=== PATIENT | female | born 1955 ===

== ENCOUNTER 2025-01-29 08:37 | Outpatient (CLI) | payer MEDICARE, OTHER, SELFPAY ==
--- OUTSIDE RECORDS SUMMARY | 2025-01-29 08:42 | XMS_ITS | Continuity of Care Document ---
Author Name [facility] Organization [facility] Care Team Providers Care Computer Support Analyst Name Role Phone [facility] Unavailable Unavailable Problems Combined list of problems from Department of Defense and Veterans Affairs facilities. It does not include entries that were removed or entered in error. Problem Status Onset Date Problem Type Date of Resolution Comments Source SEBORRHEIC KERATOSIS Active Condition DoD A[place]CHORDON Active Condition DoD COLLOID MILIUM Active Condition NON C OLLOID MILIUM # 4 [facility] Diagnosis: ICD-10-CM H90.3 Sensorineural hearing loss, bilateral Active Diagnosis [facility] Medications Combined list of outpatient medications from Department of Defense and Veterans Affairs facilities.Medications provided include 1) outpatient medications from the last 15 months, and 2) patient-reported medications. Medication Details Route Status Patient Instructions Prescription Expires Prescription Number Last Dispense Date Ordering Provider Order Date Order Qty Source amLODIPine (U/D) 5 MG ORAL TAB Be careful if taking OTCs.Nathen e or use exactly as directed . 01/06/2025 [id number] 4 2023 90 [employer] Long [place] ([facility]) amLODIPine 10 mg tablet See Instruct ions, # 90 EA, 3 total refill(s ), Hard Stop Ordered 04/08/2025 5 2024 90.0 Ambulat ory Pharmac y amLODIPine 5 mg tablet 5 mg, Oral, Daily, # 90 EA, 3 total refill(s ), Hard Stop Oral (given by mouth) Discont inued 04/08/2024 4 2023 90.0 Ambulat ory Pharmac y AREXVY (respirator y syncytial virus vacc. antigen/AS0 1E adjuvant/PF ), 120MCG/0.5, KIT, INTRAMUSC, GLAXOSMITHK LINE, 1 ea. KIT Active [id number] 4 2023 1 Pharmac y Data Transac tion Service Facilit y ATENOLOL (ATENOLOL), 50 MG, TABLET, ORAL, [employer] 1000 ea. BOTTLE Active [id number] 4 2023 90 Pharmac y Data Transac tion Service Facilit y BUPROPION XL (bupropion HCl), 150 MG, TAB ER 24H, ORAL, LEANA RANCH [place], 500 ea. BOTTLE Active [id number] 4 2023 90 Pharmac y Data Transac tion Service Facilit y BUPROPION XL (bupropion HCl), 150 MG, TAB ER 24H, ORAL, [employer] 500 ea. BOTTLE Cancele d [id number] : 2023 0 Pharmac y Data Transac tion Service Facilit y BUPROPION XL (bupropion HCl), 150 MG, TAB ER 24H, ORAL, [employer] 500 ea. BOTTLE Active [id number] 4 2023 90 Pharmac y Data Transac tion Service Facilit y buPROPion XL 150 mg/24 hour tablet See Instruct spenser, # 90 EA, 3 total refill(s ), Hard Stop Discont inued 04/26/2023 3 2022 90.0 Ambulat ory Pharmac y celecoxib 200 mg capsule See Instruct spenser, # 30 EA, 0 total refill(s ), Hard Stop Complet ed 02/05/2024 3 2023 30.0 Ambulat ory Pharmac y EMPAGLIFLOZ IN 25 MG ORAL TAB Check with your doctor before becoming . 11/12/2024 [id number] 4 2023 90 [facility] ([facility]) empaglifloz in 25 mg tablet = 1 tab(s), Oral, Daily, # 90 EA, 3 total refill(s ), Hard Stop Oral (given by mouth) Ordered 10/20/2025 5 2024 90.0 Ambulat ory Pharmac y fexofenadin e 180 mg tablet See Instruct spenser, # 90 EA, 3 total refill(s ), Hard Stop Discont inued 06/20/2023 3 2022 90.0 Ambulat ory Pharmac y fluticasone 50 mcg/inh nasal spray [16g] See Instruct ions, # 16 g, 5 total refill(s ), Hard Stop Discont inued 09/12/2023 3 2023 16.0 Ambulat ory Pharmac y Jardiance 25 mg tablet 25 mg, Oral, Daily, # 90 EA, 3 total refill(s ), Hard Stop Oral (given by mouth) Discont inued 10/23/2024 4 2024 90.0 Ambulat ory Pharmac y LOSARTAN POTASSIUM (losartan potassium), 50 MG, TABLET, ORAL, XLCARE PHARMACE, 90 ea. BOTTLE Active [id number] 4 2023 180 Pharmac y Data Transac tion Service Facilit y NALTREXONE HCL (naltrexone HCl), 50 MG, TABLET, ORAL, [employer] LL, 30 ea. BOTTLE Cancele d [id number] : 2023 0 Pharmac y Data Transac tion Service Facilit y olopatadine 0.1% eye drops [5mL] See Instruct ions, # 5 mL, 6 total refill(s ), Hard Stop Complet ed 03/13/2024 4 2023 5.0 Ambulat ory Pharmac y pantoprazol e EC 20 mg tablet See dose instruct ions in comments , # 90 EA, 1 total refill(s ), Acute Complet ed 05/28/2023 3 2022 90.0 Ambulat ory Pharmac y pantoprazol e EC 20 mg tablet 20 mg, Oral, Daily, # 90 EA, 3 total refill(s ), Hard Stop Oral (given by mouth) Discont inued 05/14/2024 4 2023 90.0 Ambulat ory Pharmac y pantoprazol e EC 20 mg tablet = 1 tab(s), Oral, Daily, # 90 EA, 3 total refill(s ), Hard Stop Oral (given by mouth) Ordered 05/13/2025 5 2024 90.0 Ambulat ory Pharmac y Prednisone (Deltasone Dosepak) Tablet 10mg Oral Take with food/mil k.Take or use exactly as directed .Obtain advice for OTCs. 11/12/2024 [id number] 4 [address] [place] [address] Long LI ([facility]) predniSONE 10 mg tablet See Instruct ions, Oral, # 18 EA, 0 total refill(s ), Hard Stop Oral (given by mouth) Discont inued 02/19/2024 4 2023 18.0 Ambulat ory Pharmac y SPIRONOLACT ONE (spironolac tone), 50 MG, TABLET, ORAL, OX[employer]ORD PHARMACE, 100 ea. BOTTLE Active [id number] 4 2023 90 Pharmac y Data Transac tion Service Facilit y SYNTHROID (LEVOTHYROX INE SODIUM), 100 MCG, TABLET, ORAL, [facility] 90 ea. BOTTLE Active [id number] 4 2023 90 Pharmac y Data Transac tion Service Facilit y topiramate [Exelan] 100 mg tablet See Instruct ions, # 90 EA, 3 total refill(s ), Hard Stop Discont inued 03/15/2023 3 2022 90.0 Ambulat ory Pharmac y topiramate [GSMS] 25 mg tablet See dose instruct ions in comments , # 70 EA, 0 total refill(s ), Acute Complet ed 01/26/2024 3 2023 70.0 Ambulat ory Pharmac y Allergies, Adverse Reactions, Alerts Combined list of allergies from Department of Defense and Veterans Affairs facilities. It does not include entries that were removed or entered in error. Substance Category Reaction Severity Reaction type Status Date Reported Comments Source acetaminop hen-oxycod one Propensity to adverse reactions to drug Unknown Active 4 vomitting shakes dizzy Unknown Organizatio n PERCOCET (OXYCODONE HCL/ACETAM INOPHEN) Drug allergy (disorder) Unknown active [address] [place] [address] Long [place] ([facility]) Immunizations Combined list of available immunizations from the Department of Defense and Veterans Affairs facilities. Immunization Series Date Given Administered By Site Reaction Lot Number CVX Code Drug Quickbooks Bookkeeper Status Comments Source COVID-19, mRNA, LNP-S, PF, 30 mcg/0.3 mL dose, dequan-sucrose 2021 [email or web address] [place] (PFR) Not Given COVID-19, mRNA, LNP-S, PF, 30 mcg/0.3 mL dose, dequan-sucr ose DoD COVID-19, mRNA, LNP-S, PF, 30 mcg/0.3 mL dose 2021 [email or web address] [place] (PFR) Not Given COVID-19, mRNA, LNP-S, PF, 30 mcg/0.3 mL dose DoD influenza, injectable, quadrivalent, preservative free 2020 PENSE, () Not Given influenza , injectabl e, quadrival ent, preservat jennifer free DoD influenza virus vaccine, inactivated 2019 88 [employer] complet ed influenza virus vaccine, inactivat ed 06/22/20 Given Ambulat ory Pharmac y Influenza, injectable, MDCK, preservative free, quadrivalent 2019 ALUL, () Not Given Influenza , injectabl e, MDCK, preservat jennifer free, quadrival ent DoD zoster recombinant 2019 ALUL, () Not Given zoster recombina nt DoD zoster recombinant 2019 ALUL, () Not Given zoster recombina nt DoD influenza, injectable, quadrivalent 2018 shazLef t Arm TRANSCR IBED 158 complet ed influenza , injectabl e, quadrival ent 06/09/19 Given Ambulat ory Pharmac y influenza, injectable, quadrivalent, contains preservative 1 2018 Unknown, Provider 158 Transcribed (TRS) complet ed influenza , injectabl e, quadrival ent, contains preservat jennifer DoD typhoid vaccine, inactivated 2004 101 complet ed typhoid vaccine, inactivat ed 05/13/05 Given Ambulat ory Pharmac y Td (adult)-PF 2004 113 complet ed Td (adult)-P F 05/13/05 Given Ambulat ory Pharmac y typhoid vaccine, parenteral, other than acetone-kille d, dried 2 2004 Unknown, Provider 41 Transcribed (TRS) complet ed typhoid vaccine, parentera l, other than acetone-k illed, dried DoD tetanus and diphtheria toxoids, adsorbed, preservative free, for adult use (5 Lf of tetanus toxoid and 2 Lf of diphtheria toxoid) 1 2004 Unknown, Provider 113 Transcribed (TRS) complet ed tetanus and diphtheri a toxoids, adsorbed, preservat jennifer free, for adult use (5 Lf of tetanus toxoid and 2 Lf of diphtheri a toxoid) DoD influenza virus vaccine, live 2004 [id number] [employer] comple t ed influenza virus vaccine, live 09/25/04 Given Ambulat ory Pharmac y influenza virus vaccine, live, attenuated, for intranasal use 2004 Unknown, Provider [id number] 111 [employer]. (MED) complet ed influenza virus vaccine, live, attenuate d, for intranasa l use [facility] influenza virus vaccine, whole virus 2002 zzLef t Arm [id number] 16 sanofi pasteur complet ed influenza virus vaccine, whole virus 07/04/03 Given Ambulat ory Pharmac y influenza virus vaccine, whole virus 1 2002 Unknown, Provider [id number] 16 Sanofi Pasteur (PMC) complet ed influenza virus vaccine, whole virus [facility] tuberculin purified protein derivative 2002 zzLef t Arm [id number] 96 sanofi pasteur complet ed Patient Tolerance : Negative Ambulat ory Pharmac y tuberculin skin test; purified protein derivative solution, intradermal 1 2002 Unknown, Provider [id number] 96 Sanofi Pasteur (PMC) complet ed tuberculi n skin test; purified protein derivativ e solution, intraderm al [facility] typhoid vaccine, inactivated 2002 zzLef t Arm [id number] sanofi pasteur complet ed typhoid vaccine, inactivat ed 02/07/03 Given Ambulat ory Pharmac y typhoid vaccine, parenteral, other than acetone-kille d, dried 1 2002 Unknown, Provider [id number] 41 Sanofi Pasteur (PMC) complet ed typhoid vaccine, parentera l, other than acetone-k illed, dried [facility] influenza virus vaccine, whole virus 2001 zzLef t Arm [id number] 16 sanofi pasteur complet ed influenza virus vaccine, whole virus 07/04/02 Given Ambulat ory Pharmac y influenza virus vaccine, whole virus 1 2001 Unknown, Provider [id number] 16 Sanofi Pasteur (PMC) complet ed influenza virus vaccine, whole virus DoD meningococcal polysaccharid e (MPSV4) 2001 zzLef t Arm [id number] 32 sanofi pasteur complet ed meningoco ccal polysacch aride (MPSV4) 06/06/02 Given Ambulat ory Pharmac y meningococcal polysaccharid e vaccine (MPSV4) 1 2001 Unknown, Provider [id number] 32 Sanofi Pasteur (PMC) complet ed meningoco ccal polysacch aride vaccine (MPSV4) DoD tuberculin purified protein derivative 2001 zzLef t Arm [id number] 96 sanofi pasteur complet ed Patient Tolerance : Negative Ambulat ory Pharmac y tuberculin skin test; purified protein derivative solution, intradermal 1 2001 Unknown, Provider [id number] 96 Sanofi Pasteur ([facility]) complet ed tuberculi n skin test; purified protein derivativ e solution, intraderm al DoD influenza virus vaccine, whole virus 2000 zzLef t Arm [id number] 16 sanofi pasteur complet ed influenza virus vaccine, whole virus 06/15/01 Given Ambulat ory Pharmac y influenza virus vaccine, whole virus 1 2000 Unknown, Provider [id number] 16 Sanofi Pasteur ([facility]) complet ed influenza virus vaccine, whole virus DoD influenza virus vaccine, whole virus 2000 zzLef t Arm [id number] 16 sanofi pasteur complet ed influenza virus vaccine, whole virus 05/11/01 Given Ambulat ory Pharmac y influenza virus vaccine, whole virus 1 2000 Unknown, Provider [id number] 16 Sanofi Pasteur ([facility]) complet ed influenza virus vaccine, whole virus DoD tuberculin purified protein derivative 2000 zzLef t Arm [id number] 96 sanofi pasteur complet ed Patient Tolerance : Negative Ambulat ory Pharmac y tuberculin skin test; purified protein derivative solution, intradermal 1 2000 Unknown, Provider [id number] 96 Sanofi Pasteur (PMC) complet ed tuberculi n skin test; purified protein derivativ e solution, intraderm al DoD typhoid vaccine, inactivated 2000 [id number] sanofi pasteur complet ed typhoid vaccine, inactivat ed 09/04/00 Given Ambulat ory Pharmac y yellow fever vaccine 2000 [id number] 37 sanofi pasteur complet ed yellow fever vaccine 09/04/00 Given Ambulat ory Pharmac y influenza virus vaccine, whole virus 2000 [id number] 16 [facility] complet ed influenza virus vaccine, whole virus 09/04/00 Given Ambulat ory Pharmac y influenza virus vaccine, whole virus 1 2000 Unknown, Provider [id number] 16 [facility] ([facility]) complet ed influenza virus vaccine, whole virus DoD yellow fever vaccine 1 2000 Unknown, Provider [id number] 37 Oscarofi Pasteur ([facility]) complet ed yellow fever vaccine DoD typhoid vaccine, parenteral, other than acetone-kille d, dried 2000 Unknown, Provider [id number] 41 Sanofi Pasteur ([facility]) complet ed typhoid vaccine, parentera l, other than acetone-k illed, dried DoD tuberculin purified protein derivative 1999 96 complet ed Patient Tolerance : Negative Ambulat ory Pharmac y tuberculin skin test; purified protein derivative solution, intradermal 1 1999 Unknown, Provider 96 () complet ed tuberculi n skin test; purified protein derivativ e solution, intraderm al DoD influenza virus vaccine, whole virus 1999 [id number] 16 sanofi pasteur complet ed influenza virus vaccine, whole virus 09/21/99 Given Ambulat ory Pharmac y influenza virus vaccine, whole virus 1 1999 Unknown, Provider [id number] 16 Sanofi Pasteur ([facility]) complet ed influenza virus vaccine, whole virus DoD tuberculin purified protein derivative 1998 2503-11 96 [employer] complet ed Patient Tolerance : Negative Ambulat ory Pharmac y tuberculin skin test; purified protein derivative solution, intradermal 1998 Unknown, Provider [id number] 96 [place] (CON) complet ed tuberculi n skin test; purified protein derivativ e solution, intraderm al DoD tuberculin purified protein derivative 1998 2504-11 /2503-1 1 96 [employer] complet ed Patient Tolerance : Negative Ambulat ory Pharmac y tuberculin skin test; purified protein derivative solution, intradermal 1 1998 Unknown, Provider 2504-11 /2503-1 1 96 [facility] (CON) complet ed tuberculi n skin test; purified protein derivativ e solution, intraderm al DoD typhoid vaccine, inactivated 1997 101 complet ed typhoid vaccine, inactivat ed 07/12/98 Given Ambulat ory Pharmac y typhoid vaccine, parenteral, other than acetone-kille d, dried 1 1997 Unknown, Provider 41 () complet ed typhoid vaccine, parentera l, other than acetone-k illed, dried DoD influenza virus vaccine, whole virus 1997 [id number] 16 [facility] complet ed influenza virus vaccine, whole virus 06/19/98 Given Ambulat ory Pharmac y influenza virus vaccine, whole virus 1 1997 Unknown, Provider [id number] 16 [facility] (CON) complet ed influenza virus vaccine, whole virus DoD tuberculin purified protein derivative 1997 2483-11 96 [facility] complet ed Patient Tolerance : Negative Ambulat ory Pharmac y tuberculin skin test; purified protein derivative solution, intradermal 1 1997 Unknown, Provider [id number] 96 [facility] tuberculi n skin test; purified protein derivativ e solution, intraderm al DoD influenza virus vaccine, whole virus [id number] 16 [employer] complet ed influenza virus vaccine, whole virus 06/06/97 Given Ambulat ory Pharmac y influenza virus vaccine, whole virus 1 1996 Unknown, Provider [id number] 16 [employer] (Inactive) ([place]) complet ed influenza virus vaccine, whole virus DoD tuberculin purified protein derivative [address] [place] [address] complet ed Patient Tolerance : Negative Ambulat ory Pharmac y meningococcal polysaccharid e (MPSV4) 1996 32 complet ed meningoco ccal polysacch aride (MPSV4) 02/14/97 Given Ambulat ory Pharmac y tuberculin skin test; purified protein derivative solution, intradermal 1 1996 Unknown, Provider CON [facility] tuberculi n skin test; purified protein derivativ e solution, intraderm al DoD meningococcal polysaccharid e vaccine (MPSV4) 1 1996 Unknown, Provider 32 () complet ed meningoco ccal polysacch aride vaccine (MPSV4) DoD hepatitis B adult vaccine [id number] 43 [employer] complet ed hepatitis B adult vaccine 11/12/96 Given Ambulat ory Pharmac y hepatitis B vaccine, adult dosage 3 1996 Unknown, Provider [id number] 43 [employer] (Inactive) ([place]) complet ed hepatitis B vaccine, adult dosage DoD influenza virus vaccine, whole virus 1995 16 complet ed influenza virus vaccine, whole virus 06/21/96 Given Ambulat ory Pharmac y influenza virus vaccine, whole virus 1 1995 Unknown, Provider 16 () complet ed influenza virus vaccine, whole virus DoD hepatitis A adult vaccine [id number] 52 [employer] complet ed hepatitis A adult vaccine 02/02/96 Given Ambulat ory Pharmac y hepatitis A vaccine, adult dosage 2 1995 Unknown, Provider [id number] 52 [employer] ([place]active[place] complet ed hepatitis A vaccine, adult dosage DoD typhoid, parenteral, AKD [id number] 53 [employer] complet ed typhoid, parentera l, AKD 06/24/95 Given Ambulat ory Pharmac y typhoid vaccine, parenteral, acetone-kille d, dried ([place] ) 3 1994 Unknown, Provider [id number] 53 [employer] ([place]active[place] complet ed typhoid vaccine, parentera l, acetone-k illed, dried ([place]. ) DoD tetanus-dipht h toxoids (Td) adult/adol 1994 09 complet ed tetanus-d iphth toxoids (Td) adult/ado l 03/10/95 Given Ambulat ory Pharmac y tetanus and diphtheria toxoids, adsorbed, preservative free, for adult use (2 Lf of tetanus toxoid and 2 Lf of diphtheria toxoid) 1 1994 Unknown, Provider 09 () complet ed tetanus and diphtheri a toxoids, adsorbed, preservat jennifer free, for adult use (2 Lf of tetanus toxoid and 2 Lf of diphtheri a toxoid) [facility] cholera vaccine unspecified formula [id number] 26 [employer] complet ed cholera vaccine unspecifi ed formula 09/13/91 Given Ambulat ory Pharmac y cholera vaccine, unspecified formulation 1 1991 Unknown, Provider [id number] 26 [employer] (Inactive[place] ([place]) complet ed cholera vaccine, unspecifi ed formulati on DoD yellow fever vaccine [id number] 37 [employer] complet ed yellow fever vaccine 04/06/90 Given Ambulat ory Pharmac y yellow fever vaccine 1 1989 Unknown, Provider [id number] 37 [employer] ([place]active[place] complet ed yellow fever vaccine DoD measles/mumps /rubella virus vaccine 1987 03 complet ed measles/m umps/rube lla virus vaccine 10/15/87 Given Ambulat ory Pharmac y measles, mumps and rubella virus vaccine 1 1987 Unknown, Provider 03 () complet ed measles, mumps and rubella virus vaccine DoD poliovirus vaccine, live, oral 1980 02 complet ed polioviru s vaccine, live, oral 11/10/80 Given Ambulat ory Pharmac y trivalent poliovirus vaccine, live, oral 1 1980 Unknown, Provider 02 () complet ed trivalent polioviru s vaccine, live, oral DoD Encounters Combined list of: 1) Encounters from Department of Veterans Affairs facilities going backup to the last 18 months, not all VA inpatient encounters are included; 2) Encounters from the Department of Defense facilities going backup to 280 months. Location Location Details Encounter Type Encounter Number Reason For Visit Attending Provider ADM Date DC Date Status Disposition [facility] OUTPATIENT [id number] skin tag CINDY FELICIANO 01/18 Released w/o Limitations [facility](Husam her[facility] Resourc e Share) [facility] Outpatient Encounter [id number] 05/14 [facility] Outpatient Encounter [id number] 10/23 [facility] HEARING AID XM&SLCTN BINAURL [id number] Diagnos is: ICD-10- CM H90.3 Sensori neural hearing loss, ALBA Goetz 01/08 [facility] Procedures Combined list of: 1) Procedures from Department of Veterans Affairs facilities going back up to thelast 18 months, not all VA non-surgical procedures are included; 2) All procedures from the Department of Defense facilities. Procedure Procedure Type Code Date Perfomer Comments Source No data available for this section Ambulato ry Pharmacy DESTRUCT (EG, LASER SURGERY, ELECTROSURGERY, CRYOSURGERY, CHEMOSURGERY, SURGICAL CURETTEMENT), PREMALIGNANT LESIONS (EG, ACTINIC KERATOSES); 2ND THRU 14 LESIONS, EA (LIST SEP ADDITION CD, 1ST LESION) 01/19/20 04 [facility] SUPPLY OF SPECTACLES, EXCEPT PROSTHESIS FOR APHAKIA AND LOW VISION AIDS 04/19/20 04 [facility] OPHTHALMOLOGICAL SERVICES: MEDICAL EXAMINATION AND EVALUATION, WITH INITIATION OR CONTINUATION OF DIAGNOSTIC AND TREATMENT PROGRAM; INTERMEDIATE, ESTABLISHED PATIENT 08/13/20 03 [facility] OPHTHALMOLOGICAL SERVICES: MEDICAL EXAMINATION AND EVALUATION, WITH INITIATION OR CONTINUATION OF DIAGNOSTIC AND TREATMENT PROGRAM; INTERMEDIATE, ESTABLISHED PATIENT 08/11/20 03 [facility] PRESCRIPTION OF OPTICAL AND PHYSICAL CHARACTERISTICS OF AND FITTING OF CONTACT LENS, WITH MEDICAL SUPERVISION OF ADAPTATION; CORNEAL LENS, BOTH EYES, EXCEPT FOR APHAKIA 07/02/20 03 [facility] MEDICAL NUTRITION THERAPY; GROUP (2 OR MORE INDIVIDUAL(S)), EACH 30 MINUTES 02/20/20 03 [facility] SCREENING PAPANICOLAOU SMEAR; OBTAINING, PREPARING AND CONVEYANCE OF CERVICAL OR VAGINAL SMEAR TO LABORATORY 02/07/20 03 [facility] INFUSION, NORMAL SALINE SOLUTION, 250 CC 01/01/20 03 DoD NONINVASIVE EAR OR PULSE OXIMETRY FOR OXYGEN SATURATION; SINGLE DETERMINATION 12/30/19 03 DoD Destruction Of Benign Lesion By Cryosurgery 01/19/20 04 CINDY FELICIANO DoD Destruction Of Benign Lesion By Any Method One Lesion 01/19/20 04 CINDY FELICIANO DoD Skin Tag Removal Up To 15 Lesions Skin Tag Removal Up To 15 Lesions [id number] 01/19/20 04 CINDY FELICIANO X 9 LESIONS DoD Destruct Of Benign Lesion By Any Method Second Through 14 01/19/20 04 CINDY FELICIANO X 3 DoD Social History Combined list of available smoking, tobacco, and other social history from Department of Defense and Veterans Affairs facilities. Social History Type Response Date Comment [facility] e This section is an empty social history section. DoD Assessment and Plan Combined list of future care activities from Department of Defense and Veterans Affairs facilities (e.g., assessment and plan notes, appointments, orders, and referrals). Additional future care activities may be listed in the Plan of Care section. Result Assessment and Plan Date Source Assessment and Plan No data available for this section 01/29/2025 Ambulatory Pharmacy Plan of Care List of future care activities from Department of Veterans Affairs facilities. Additional future care activities may be listed in the Assessment and Plan section. Date/Time Care Activity Care Activity Detail Facili ty 02/11/2025 AMBULATORY - SURGERY AMBULATORY - SURGERY [facility] Functional Status Combined list of recent functional and cognitive assessments recorded at Department of Defense and Veterans Affairs (VA).VA Functional [place] Measurement (FIM) Scale: 1 = Total Assistance (Subject = 0% +), 2 = Maximal Assistance (Subject = 25% +), 3 = Moderate Assistance (Subject = 50% +), 4 = Minimal Assistance (Subject = 75% +), 5 = Supervision, 6 = Modified [place] (Device), 7 = Complete [place] (Timely, Safely). Assessment Date/Time Source Assessment Type Assessment Skill Assessment Score Assessment Details No data available for this section
--- OUTSIDE RECORDS SUMMARY | 2025-01-29 08:42 | XMS_ITS | Clinical Summary ---
Author Organization [facility] Address [address] [place] [address] Care Team Providers Care Gas Station Attendant Name Role Phone Unavailable Primary Care Provider Unavailabl e Social History Tobacco Use Types Packs/Day Years Used Date Smoking Tobacco: Never Assessed Comments Unknown Sex and Gender Information Value Date Recorded Sex Assigned at Not on file Legal Sex Female 1:39 PM MANAGER AGRICULTURAL Gender Identity Not on file Sexual Orientation Not on file Plan of Treatment Health Maintenance Due Date Last Done Comments DEXA Bone Density 1955 Hepatitis C Virus (HCV) Screening 1955 TdaP Immunization 1955 Colonoscopy 2002 Colorectal Cancer Screening 2002 Cologuard 2007 Immunochemical Fecal Occult Blood 2007 Mammogram 2007 Pneumococcal Immunization (5 0+ years) (1 of 1 - PCV) 2007 Influenza Immunization (#1) 05/04/202406/04, 04/24/2018 SARS-COV-2 Immunization (2023- season) 2024 Respiratory Syncytial Virus (RSV) Immunization (Adult) (1 - 1-dose 75+ series) 01/02/2032 Zoster Immunization Completed 06/22/2020, 03/25/2020 Hepatitis B Immunization Aged Out No longer eligible based on patient's age to complete this topic Meningococcal Immunization (ACWY) Aged Out No longer eligible b ased on patient's age to complete this topic Rotavirus Immunization Aged Out No lo nger eligible based on patient's age to complete this topic
--- OUTSIDE RECORDS SUMMARY | 2025-01-29 08:42 | XMS_ITS | Encounter Summary ---
Author Name [facility] [place] Organization [facility] [place] Address [address] [place] [address] Support Name Relationship Address Phone BETOSAMINA HTORNTON Next of Kin [address] [place] [address] SAMINA GRAY Emergency Contact [address] [place] [address] Selected Encounter This section includes the information on record at [place] for the Encounter. Date/Time Encounter Type Encounter Description Reason Provider Source January 08, 2025 10:30 AM HEARING AID XM&SLCTN [facility] ICD-10-CM H90.3 Sensorineural hearing loss, bilateral VEST,ALBA A IHE Encounter Template Text not used by [place] Assessments - Encounter Diagnoses This section includes the primary and secondary diagnoses documented for the Encounter. Date/Time Primary/Secondary Diagnosis Diagnosis Name Provider Source January 08, 2025 11:16 AM PRIMARY Sensorineural hearing loss, bilateral VEST,ALBA A [facility] Plan of Treatment: Future Appointments (+ 6 months) and Future Tests (+/- 45 days) The Plan of Treatment section includes future care activities for the patient from all [place] [facility]. This section includes future appointments and future orders which are active, pending or scheduled. Future Appointments This section includes appointments that were scheduled to occur 6 months from the date of the Encounter, up to a maximum of 20 appointments. The data comes from all [place] treatment facilities. Appointment Date/Time Appointment Type Appointme nt Facility Name Feb 11, 2025 02:45 PM AMBULATORY - SURGERY [facility] Encounter Notes: All associated encounter notes This section contains the clinical notes associated to the Encounter. Date/Time Encounter Note(s) Provider Source January 12, 2025 11:41 AM ADDENDUM: LOCAL TITLE: Addendum STANDARD TITLE: ADDENDUM DATE OF NOTE: JANUARY 12, 2025@11:41:27 ENTRY DATE: JANUARY 12, 2025@11:41:28 AUTHOR: JI DESIR EXP COSIGNER: URGENCY: STATUS: COMPLETED SUBJECT: AUDIO Vet called and provide her old HUTCHINS's information: LUCJUAN MIGUEL engage [address] Model ID [id number] Also, she was concerned of the [employer]CHINS arias that she needs to pay so she can prepare before the appt. She was informed that the vet, pay only the COPay. Vet understood /es/ JI DESIR AMSAdelaide Signed: 01/12/2025 11:47 Receipt Acknowledged By: 01/12/2025 15:08 /es/ MIRI KELLY Staff Senior Policy Associate, Surgery Service for ALBA KNOX ====== --- Original Document --- 01/08/25 AUDIO EVALS ST[facility]: Purpose of appt: Hearing loss [x] patient initiated visit [] provider initiated visit via consult Case history: Initial audio. Pt here today stating her PCP recommend she come in. She reports bilateral hearing loss. She purchased RICs from [employer] around 3 years ago. She denied any otosurgeries, recent ear infections, tinnitus or dizziness. Otoscopic inspection revealed clear ear canals. RESULTS: Right Ear- Audiometry (air and/or bone conduction): Mild through 4000 Hz sloping to mod- severe snhl at 8000 Hz. SRT: 35 WRS: 88% Tympanogram: A Reflexes: ipsi: Present 500-2000 Hz, absent 4000 Hz contra: Present 1-2000 Hz absent 500 & 4000 Hz Left Ear- Audiometry (air and/or bone conduction): Mild through 4000 Hz sloping to mod- severe snhl at 8000 Hz. SRT: 35 WRS: 84% Tympanogram: A (hand-held) Reflexes: CNT, poor seal Discussed test results with patient. She is interested in trying ITC aids and use her RICs as backups. She is eligible for aids through the [facility]. Hearing Aid Exam performed today: [x] Binaural Otoscopy reveals clear canals. Appropriate evaluation of patient leads to hearing aid order. Ear mold impression(s) taken. Hearing aid will be ordered and appointment requested for fitting. [x] provider initiated visit [x]experienced user-Pt wore [employer] RICs Discussed aids with pt to include the following: STYLE: Showed pt various demo aids in clinic from canal through [employer] style. She would like to go with ITC this time around. BATTERY TYPE: Rechargeable COLOR: clear/pink CONNECTIVITY: iPhone MATRIX: L After discussion, pt and clinician chose: Teofilo Lino AI ITC R for both ears. Program auto/vc. Offered to register her current aids in [facility] for batteries if available. Unable to find make/model on her aids. If she is able to find this information and it is in [facility] will register. [id number] Battery: size 312 rec: 1. HAF sched. /eddie/ Brent JONES Staff Senior Policy AssociateVidya, Surgery Service Signed: 01/08/2025 11:18 01/12/2025 ADDENDUM STATUS: UNSIGNED You may not VIEW this UNSIGNED Addendum. JI DESIR [facility] January 08, 2025 10:39 AM AUDIOLOGY E & M NO TE: LOCAL TITLE: AUDIO EVALS [facility] STANDARD TITLE: AUDIOLOGY E & M NOTE DATE OF NOTE: JANUARY 08, 2025@10:39 ENTRY DATE: JANUARY 08, 2025@10:39:11 AUTHOR: ALBA KNOX COSIGNER: URGENCY: STATUS: COMPLETED SUBJECT: Audio AUDIO EVALS [facility] Has ADDENDA Purpose of appt: Hearing loss [x] patient initiated visit [] provider initiated visit via consult Case history: Initial audio. Pt here today stating her PCP recommend she come in. She reports bilateral hearing loss. She purchased RICs from [employer] around 3 years ago. She denied any otosurgeries, recent ear infections, tinnitus or dizziness. Otoscopic inspection revealed clear ear canals. RESULTS: Right Ear- Audiometry (air and/or bone conduction): Mild through 4000 Hz sloping to mod- severe snhl at 8000 Hz. SRT: 35 WRS: 88% Tympanogram: A Reflexes: ipsi: Present 500-2000 Hz, absent 4000 Hz contra: Present 1-2000 Hz absent 500 & 4000 Hz Left Ear- Audiometry (air and/or bone conduction): Mild through 4000 Hz sloping to mod- severe snhl at 8000 Hz. SRT: 35 WRS: 84% Tympanogram: A (hand-held) Reflexes: CNT, poor seal Discussed test results with patient. She is interested in trying ITC aids and use her RICs as backups. She is eligible for aids through the [facility]. Hearing Aid Exam performed today: [x] Binaural Otoscopy reveals clear canals. Appropriate evaluation of patient leads to hearing aid order. Ear mold impression(s) taken. Hearing aid will be ordered and appointment requested for fitting. [x] provider initiated visit [x]experienced user-Pt wore [employer] RICs Discussed aids with pt to include the following: STYLE: Showed pt various demo aids in clinic from canal through [employer] style. She would like to go with ITC this time around. BATTERY TYPE: Rechargeable COLOR: clear/pink CONNECTIVITY: iPhone MATRIX: L After discussion, pt and clinician chose: Teofilo KARIMI ITC R for both ears. Program auto/vc. Offered to register her current aids in [facility] for batteries if available. Unable to find make/model on her aids. If she is able to find this information and it is in [facility] will register. [id number] Battery: size 312 rec: 1. CUONGF sched. /eddie/ Brent JONES Staff Senior Policy AssociateVidya, Surgery Service Signed: 01/08/2025 11:18 01/12/2025 ADDENDUM STATUS: COMPLETED Vet called and provide her old HUTCHINS's information: [employer] engage [address] Model ID [id number] Also, she was concerned of the [employer] arias that she needs to pay so she can prepare before the appt. She was informed that the vet, pay only the COPay. Vet understood /es/ JI THOMAS Signed: 01/12/2025 11:47 Receipt Acknowledged By: 01/12/2025 15:08 /eddie/ MIRI KELLY Staff Senior Policy Associate, Surgery Service for ALBA THOMPSONJayme 01/12/2025 ADDENDUM STATUS: COMPLETED Called her and left message on her phone. We need serial #s and purchase date. /eddie/ MIRI KELLY Staff Senior Policy Associate, Surgery Service Signed: 01/12/2025 15:10 ALBA KNOX [facility]
--- NOTE | 2025-02-20 11:00 | WPDSLEEPSTUD ---
Sleep Study Date of Study: 01/29/25 Ordering Provider: Bakari Gibbons, HAND STRAIGHTENER Interpreting Physician: Maria Del Carmen Adams, DO Sleep Study Type: CPAP Titration Height: 1.7 m Weight: 99.79 kg Body Mass Index: 34.4 Neck Circumference (inches): 16.5 [place]: 4 Reason for Sleep Study The patient is currently on CPAP 13 cm H2O and is compliant with therapy. The patient is considering switching to an oral appliance. Sleep History The patient is a 70-year-old female with previously diagnosed sleep apnea on CPAP that had a sleep study ordered by her ENT for evaluation of other treatment options. The patient frequently awakens from sleep short of breath. She denies awakening at night with heartburn, belching or cough. She constantly snores loudly enough that others complain. She frequently has trouble sleeping when she has a cold. She occasionally wakes up gasping for air throughout the night. She frequently has breathing problems at night observed by herself or others. She rarely sweats excessively at night. She denies having heart palpitations or irregular heartbeats during the night. He rarely falls asleep during the day but never while driving. She denies sleep paralysis and cataplexy. She denies having trouble at school or work due to sleepiness. She occasionally experiences vivid dreamlike scenes upon awakening or falling asleep. She denies feeling afraid of going to sleep. She occasionally has nightmares. She occasionally remembers her dreams. She occasionally has thoughts racing through her mind. She rarely feels sad or depressed. She occasionally has anxiety. She denies having muscular tension. She rarely notices parts of her body jerk. She occasionally kicks during the night. She rarely has crawling and aching feelings in her legs but occasionally has leg pain during the night. She frequently grinds her teeth during sleep but rarely awakens with morning jaw pain. She is occasionally bothered by pain during the day but rarely awakened by pain during the night. She rarely wakes up feeling stiff in the morning. She occasionally wakes up with sore or achy muscles. She frequently wakes up with pain in the neck, spine and other joints. She goes to bed at 9:00 p.m. on both weekdays and weekends. It takes her 15-20 minutes to fall asleep. She wakes up 2-3 times throughout the night to urinate and is able to fall back asleep within 5-10 minutes. She wakes up between 7 and 8:00 a.m. on both weekdays and weekends. She typically gets 8-9 hours of sleep per night. She will stay in bed for 5 minutes after waking up in the morning. She currently lives with her . She denies consuming any caffeinated beverages within 2 hours of bedtime. She denies engaging in physical exercise before bedtime. She will watch television before falling asleep. She denies taking naps in the afternoon or the evening. She does consume caffeinated beverages throughout the day. She denies tobacco, alcohol and recreational drug use. Sleep Procedure A full night CPAP Titration using the GridAnts multi-channel system recorded the standard physiologic parameters including EEG, EOG, submentalis EMG, anterior tibialis EMG, EKG, body position, nasal and oral airflow using nasal pressure sensor and thermistor.? Respiratory parameters of chest and abdominal movements were recorded with Respiratory Inductance Plethysmography belts. Oxygen saturation was recorded by pulse oximetry. Video monitoring was also performed. Sleep stages, periodic limb movements, and EEG arousals were scored in 30 second epochs according to the criteria of the AASM Scoring Manual. The Apnea-Hypopnea Index was calculated using CMS guidelines for definition of hypopnea with 4% O2 desaturations while scoring respiratory events. Sleep Architecture The total recording time was 486.6 minutes.? The total sleep time was 399.5 minutes. Sleep latency was 5.0 minutes. REM latency was 326.0 minutes. Sleep efficiency was 82.1%. The patient had 37 awakenings for an awakening index of 5.6. Wake after Sleep Onset time was 82.5 minutes. The patient spent 57.5 minutes, 14.4% of total sleep time in Stage N1. The patient spent 258.0 minutes, 64.6% in Stage N2. The patient spent 46.5 minutes, 11.6% in Stage N3. The patient spent 37.5 minutes, 9.4% in Stage REM. Respiratory Analysis The patient had 73 hypopneas, 3 obstructive apneas, 1 mixed apnea and 2 central apneas for an overall Apnea Hypopnea Index of 11.9 events per hour. The REM Apnea Hypopnea Index was 4.8. The NREM Apnea Hypopnea Index was 12.6. The patient had a Central Apnea Hypopnea Index of 0.3. There was no evidence of Franco-Bella Respirations. The patient was started on CPAP 5 cm H2O and titrated to CPAP 16 cm H2O due to hypopneas. The patient was able to fall asleep starting on CPAP 5 cm H2O. The patient was able to achieve REM sleep starting on CPAP 16 cm H2O. The patient was able to achieve a residual AHI of 5.2 with both NREM and REM sleep in the supine position on 16 cm H2O. On CPAP 16 cm H2O, the patient spent 19.5 minutes in NREM and 27 minutes in REM with 2 obstructive apneas and 8 hypopneas, resulting in an AHi of 5.2. The patient had a sleep efficiency of 89.4% on this pressure setting. The patient was still having snoring on this pressure setting. Arousals There were 204 total arousals for an arousal index of 30.6. There were 122 spontaneous arousals for an index of 18.3. ?There were 33 arousals due to respiratory events for an index of 5.0. There were 28 arousals due to periodic limb movements for an index of 4.2.? There were 22 arousals due to isolated limb movements for an index of 3.3. Periodic Limb Movements The patient had 78 isolated limb movements with an index of 11.7. The patient had 191 periodic limb movements with index of 28.7, which is elevated (normal < 15). Patient had a total of 269 limb movements with a total limb movement index of 40.4. Oximetry Data The patient had an average oxygen saturation of 95.6% in sleep with a minimum oxygen saturation of 84.0% and a maximum oxygen saturation of 99.0%. The patient had 76 oxygen desaturations that were 4% or greater resulting in an Oxygen Desaturation Index of 11.4.? The patient spent 3.7 minutes, 0.8% of total sleep time with an oxygen saturation below 88%. Snoring Profile Snoring was present throughout the study. The snoring became intermittent once the patient was titrated to 18 cm H2O. Cardiac Profile The EKG showed normal sinus rhythm. No arrhythmias or premature beats were seen. The patient had an average pulse rate of 53.9 bpm with a minimum pulse rate of 48.0 bpm and a maximum pulse rate of 84.0 bpm. ? EEG Profile No signs of seizure activity seen. Assessment and Plan Assessment and Plan (1) WALDEMAR (obstructive sleep apnea): Code(s): G47.33 - Obstructive sleep apnea (adult) (pediatric) Status: Acute Assessment and Plan: The patient was started on CPAP 5 cm H2O and titrated to CPAP 16 cm H2O due to hypopneas. the patient's sleep apnea improved the most when she was titrated to 16 cm H2O. I recommend that the patient's pressure settings be changed to CPAP 16 cm H2O using a size small F&P solo nasal mask without chinstrap. If the patient does not want to continue CPAP therapy, I recommend that she consult with a sleep dentist to see if she is a candidate for a mandibular advancement device. This should be used with all episodes of sleep.? Compliance should be reviewed within 31-90 days of starting therapy for usage greater than 4 hours per night greater than 70% of the nights. The patient should be asked about symptoms such as?excessive daytime sleepiness, quality of sleep, decreased nocturia, increased?mental functioning such as memory, mood, and concentration. While the patient did have an increased number of periodic limb movements, the frequency decreased significantly once she was titrated to the optimal pressure setting. I recommend asking the patient about periodic limb movements at her next visit. Data The data obtained during this sleep study is adequate for interpretation. Certification This sleep study has been reviewed by a board certified sleep medicine physician.
[2025-02-23 12:36] VITALS: BMI 34.4
== END 2025-01-30 07:30 | disposition home or self-care (01) ==
PROVIDERS: PCP Family Medicine; Visit Provider Nurse Practitioner Family
DX: G47.30 Sleep apnea, unspecified (principal); G47.33 Obstructive sleep apnea (adult) (pediatric)
CPT/HCPCS: 95811